=== PATIENT | male | born 2000 | race Caucasian/White ===

== ENCOUNTER 2020-04-16 14:28 | Emergency (ER) | payer BC ==
[~2020-04-16] VITALS: Ht 167.6 cm; Wt 60.0 kg
[2020-04-16 14:29] VITALS: BP 117/61
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
[2020-04-16] MEDS ORDERED: ACETAMINOPHEN 500 MG TABLET ONE (14:56)
[2020-04-16] MEDS ORDERED: ACETAMINOPHEN 500 MG TABLET PO ONE (15:00)
[2020-04-16] MEDS ORDERED: LIDOCAINE-MPF 1%, 5ML INFIL ONE (15:00)
--- NOTE | 2020-04-16 15:20 | NUR ---
PT TO CT AT THIS TIME
[2020-04-16] MEDS ORDERED: LIDOCAINE-MPF 1%, 5ML ONE (15:26)
== END 2020-04-16 16:43 | disposition home or self-care (01) ==
LOC: ED 15:21
DX: S01.511A Laceration without foreign body of lip, initial encounter (principal); G89.21 Chronic pain due to trauma; Y04.8XXA Assault by other bodily force, initial encounter; Y93.89 Activity, other specified; Y92.89 Other specified places as the place of occurrence of the external cause; Y99.8 Other external cause status
CPT/HCPCS: 12013; 70450; 70486; 99285